=== PATIENT | male | born 1980 | race Caucasian/White ===

== ENCOUNTER 2019-03-23 21:02 | Emergency (ER) | payer SELFPAY ==
[~2019-03-23] VITALS: Ht 185.4 cm; Wt 177.3 kg
[2019-03-23] MEDS ORDERED: B/P MED PO (21:31)
[2019-03-23 23:20] VITALS: BP 139/77
== END 2019-03-23 23:21 | disposition home or self-care (01) ==
LOC: M ED 21:02
DX: F43.0 Acute stress reaction (principal); I10 Essential (primary) hypertension; Z79.899 Other long term (current) drug therapy